=== PATIENT | female | born 1955 | race Caucasian/White ===

== ENCOUNTER 2017-08-21 12:51 | Outpatient (CLI) | payer OTHER ==
--- NOTE | 2017-08-21 17:37 | Mammography Report ---
DIGITAL DIAGNOSTIC BILATERAL MAMMOGRAM: 08/21/2017 CLINICAL INDICATION: Left periareolar pain. COMPARISON: 03/06/2016, 01/22/2014, 11/28/2012, 11/24/2011, 10/27/2010, 10/14/2009. TECHNIQUE: Bilateral CC, laterally exaggerated CC, MLO views, left true lateral and spot compression views. The breasts again demonstrate heterogeneously dense fibroglandular parenchyma bilaterally. Coarse an d punctate, typically benign calcifications are present. No suspicious masses, clustered microcalcif ications, or regions of architectural distortion are identified. Intramammary lymph nodes are stable . Specifically, no left retroareolar lesion is appreciated. IMPRESSION: BENIGN FINDINGS. RECOMMENDATION: ROUTINE ANNUAL SCREENING UNLESS OTHERWISE CLINICALLY INDICATED. BIRADS CATEGORY: 2, BENIGN FINDINGS. STANDARD QUALIFYING STATEMENTS 1. This examination was reviewed with the aid of Computed-Aided Detection (CAD). 2. A negative or benign imaging report should not delay biopsy if clinically suspicious findings are present. Consider surgical consultation if warranted. More than 5% of cancers are not identified b y imaging. 3. Dense breasts may obscure an underlying neoplasm. JOB #: [id number] EXT JOB #:[id number]
== END 2017-08-21 12:52 | disposition home or self-care (01) ==
LOC: DI 12:51
PROVIDERS: ATTEND Family Medicine
DX: N64.4 Mastodynia (principal)
CPT/HCPCS: 77066

== ENCOUNTER 2017-09-17 09:07 | Outpatient (CLI) | payer OTHER ==
[2017-09-17] MEDS ORDERED: BARIUM SULFATE 135 ML BOTTLE PO ONE (10:03)
[2017-09-17] MEDS ORDERED: BARIUM SULFATE 148 GM POWDER PO ONE (10:03)
--- NOTE | 2017-09-19 14:09 | XRAY Report ---
EXAMINATION: ESOPHAGRAM 09/17/2017 CLINICAL INDICATION: Reflux, history of Pascual fundoplication. COMPARISON: 03/21/2012 FINDINGS: Esophagram was performed in the upright and prone positions. The esophagus is normal in caliber. The hypopharynx appears unremarkable. Diffuse tertiary contractions are seen. No gastroesophageal reflux was visualized during the course of the study, but a significant amount of intraesophageal reflux was present, due to the presbyesophagus. The appearance of the Pascual fundoplication is stable, without evidence of slippage or disruption. IMPRESSION: PRESBYESOPHAGUS. NO EVIDENCE OF COMPLICATION OF PREVIOUS PASCUAL FUNDOPLICATION. FLUOROSCOPY TIME: Two minutes, 3 seconds; 24 spot images obtained. TD: 09/17/2017 14:35 MTDGabriel
== END 2017-09-17 09:08 | disposition home or self-care (01) ==
LOC: DI 09:07
PROVIDERS: ATTEND Surgery
DX: K21.9 Gastro-esophageal reflux disease without esophagitis (principal)
CPT/HCPCS: 74220; A9270

== ENCOUNTER 2017-10-04 09:09 | Day surgery (SDC) | payer OTHER ==
[2017-10-04] MEDS ORDERED: LACTATED RINGERS 1,000 ML IV ONE (09:40)
[2017-10-04] MEDS ORDERED: ONDANSETRON 4 MG/2 ML VIAL ONE (10:07)
--- NOTE | 2017-10-04 10:28 | HISTORY & PHYSICAL EXAMINATION ---
HPI - History of Present Illness HPI Comment/Other: Visit Type: Initial Consult Primary Provider: Dr. Maldonado History of Present Illness: Patient is here today for consult, breast and abdominal pain. ...................................................................Axel Sierra RN August 28, 2017 1:05 PM Mary Is here in consultation for persistent severe GERD. despite medications and depsite Lap Luis F performed in 2005. She was also referred for nipple pain, however, states that this has completely resolved and that she had a mammography performed recently which is normal.Current Meds: OMEPRAZOLE 20 MG ORAL CAPSULE DELAYED RELEASE (OMEPRAZOLE) Take one capsule by mouth daily ASPIR-LOW 81 MG ORAL TABLET DELAYED RELEASE (ASPIRIN) Take one tablet by mouth once daily CARAFATE 1 GM ORAL TABLET (SUCRALFATE) Mix one tablet in water to make slurry and then drink before meals and bedtime, four times a day CARDIZEM 60 MG ORAL TABLET (DILTIAZEM HCL) Take two tablets by mouth twice daily (please note that this is NOT the time release formulation) KLONOPIN 1 MG ORAL TABLET (CLONAZEPAM) Take 1/2 - 1 tablet by mouth at bedtime as needed for insomnia REGLAN 10 MG ORAL TABLET (METOCLOPRAMIDE HCL) Take one tab by mouth before meals and at bedtime Allergies: PCN (Critical) * ACIPHEX (Critical) PREMARIN (Critical) * PROMETHAZINE (Critical) * ESTRACE (Critical) Past Medical History: Reviewed history from 12/01/2011 and no changes required: Reacts to PCN, Premarin Irregular Heartbeat HTN Problems with Anesthesia Heartburn Acid Reflux Past Surgical History: Reviewed history from 06/19/2013 and no changes required: Fundoplication 05-28-06, Dr. Givens EGD and colonoscopy prior to surgery - colonoscopy WNL Family History Summary: Reviewed history Last on 08/03/2017 and no changes required:08/28/2017 Father (biol.) - Has a father - Entered On: 04/17/2014 Father (biol.) - Has Family History of Other Medical Problems - Aneurysm - Entered On: 08/28/2017 General Comments - FH: Mother: HTN, alive at 90+ Father: HTN, of of abd aneurysm MGF: Breast cancer PGF: Heart disease Social History: Reviewed history from 08/02/2006 and no changes required: Patient has never smoked. Passive smoke exposure - no Alcohol Use - no Drug Use - no HIV/High Risk - no Regular Exercise - yes Risk Factors: Smoked Tobacco Use: Never smoker Drug use: no Alcohol use: no Exercise: yes Times per week: 4 Type of Exercise: walking Problems were reviewed with the patient during this visit. Medications were reviewed with the patient during this visit. Allergies were reviewed with the patient during this visit. Allergies: PCN (Critical) * ACIPHEX (Critical) PREMARIN (Critical) * PROMETHAZINE (Critical) * ESTRACE (Critical) Physical Exam General: well developed, well nourished, in no acute distress Lungs: clear bilaterally to A & P Heart: regular rate and rhythm, S1, S2 without murmurs, rubs, gallops, or clicks Abdomen: bowel sounds positive; abdomen soft and non-tender without masses, organomegaly, or hernias noted Pulses: pulses normal in all 4 extremities Extremities: no clubbing, cyanosis, edema, or deformity noted with normal full range of motion of all joints Cervical Nodes: no significant adenopathy Psych: alert and cooperative; normal mood and affect; normal attention span and concentration Impression & Recommendations: Problem # 1: chronic GERD Barium swallow demonstrates adequate positioning of wrap with evidence of presbyesophagus. Will proceed with EGD. PMH/PSH - Past Medical History Cardiovascular: positive: Hypertension Respiratory: positive: None Endocrine/Autoimmune: positive: None GI: positive: GERD : positive: Chronic bladder infection HEENT: positive: None, Chronic vision loss Psych: positive: None Musculoskeletal: positive: None Derm: positive: None MRSA Hx?: No - Past Surgical History General: positive: Hiatal hernia repair, Colonoscopy, EGD HEENT: positive: Tonsil/Adenoidectomy Meds/Allgy - Home Medications Home Medications: Ambulatory Orders Medication Instructions Recorded Confirmed Aspirin [Adult Aspirin Regimen] 1 DAILY 10/03/17 Multivitamin [Multiple Vitamins] 1 DAILY 10/03/17 Omeprazole [PriLOSEC] 1 BID 10/03/17 Sucralfate 1 DAILY 10/03/17 clonazePAM [Clonazepam] 1 DAILY PM 10/03/17 diltiaZEM [Cardizem] 1 DAILY 10/03/17 Exam - Vital Signs Vital Signs: Vital Signs x48h Temp Pulse Resp BP Pulse Ox 10/04/17 09:20 36.5 C 91 18 142/73 H 98
[2017-10-04] MEDS ORDERED: MIDAZOLAM 2 MG/2 ML VIAL IVP ONE (10:35)
[2017-10-04] MEDS ORDERED: fentaNYL 100 MCG/2 ML VIAL IVP ONE (10:35)
[2017-10-04] MEDS ORDERED: ONDANSETRON 4 MG/2 ML VIAL IVP ONE (10:35)
[2017-10-04 11:21] VITALS: BP 127/64
== END 2017-10-04 09:10 | disposition home or self-care (01) ==
LOC: SDS 09:09
PROVIDERS: ATTEND Surgery
PROC: 0DB68ZX Excision of Stomach, Via Natural or Artificial Opening Endoscopic, Diagnostic (ICD-10-PCS; principal; 2017-10-04 10:15)
DX: K29.70 Gastritis, unspecified, without bleeding (principal); K31.7 Polyp of stomach and duodenum; I10 Essential (primary) hypertension; Z79.82 Long term (current) use of aspirin
CPT/HCPCS: 43239; J7120

== ENCOUNTER 2019-04-07 08:00 | Outpatient (CLI) | payer MEDICARE, OTHER ==
[2019-04-07 13:51] LABS: BILIRUBIN,URINE NEGATIVE (NEGATIVE); GLUCOSE, URINE (UA) NEGATIVE (NEGATIVE); KETONES,URINE (UA) NEGATIVE (NEGATIVE); LEUKOCYTE ESTERASE, URINE NEGATIVE (NEGATIVE); NITRITE,URINE NEGATIVE (NEGATIVE); OCCULT BLOOD,URINE NEGATIVE (NEGATIVE); PH,URINE 5.5 PH (5.0-7.5); PROTEIN,URINE NEGATIVE (NEGATIVE); UROBILINOGEN,URINE 0.2 (NORMAL) E.U./dL (NORMAL)
[2019-04-07 13:52] LABS: CLARITY,URINE CLEAR (CLEAR)
== END 2019-04-07 23:59 | disposition home or self-care (01) ==
LOC: LAB.R 08:00
PROVIDERS: ATTEND Physician Assistant Medical
DX: R10.32 Left lower quadrant pain (principal)
CPT/HCPCS: 81001; 81003; 87086

== ENCOUNTER 2019-04-07 15:52 | Outpatient (CLI) | payer MEDICARE ==
[2019-04-07 16:09] LABS: BASOPHILS % (AUTO) 0.4 %; EOSINOPHILS # (AUTO) 0.1 10^3/uL (0.0-0.7); EOSINOPHILS % (AUTO) 0.6 %; HGB - HEMOGLOBIN 13.9 g/dL (12.0-16.0); LYMPHOCYTES # (AUTO) 2.5 10^3/uL (1.5-3.5); LYMPHOCYTES % (AUTO) 30.3 %; MEAN CORPUSCULAR HEMOGLOBIN 30.7 pg (27.0-31.0); MEAN CORPUSCULAR HGB CONC 32.3 g/dL (32.0-36.0); MEAN CORPUSCULAR VOLUME 95.1 fL (81.0-99.0); MONOCYTES # (AUTO) 0.8 10^3/uL (0.0-1.0); MONOCYTES % (AUTO) 9.3 %; NEUTROPHILS # (AUTO) 4.9 10^3/uL (1.5-6.6); NEUTROPHILS % (AUTO) 59.2 %; PLT - PLATELET COUNT 304 10^3/uL (130-450); RED BLOOD COUNT 4.53 10^6/uL (4.20-5.40); RED CELL DISTRIBUTION WIDTH 13.7 % (12.0-15.0); WHITE BLOOD COUNT 8.3 x10^3/uL (4.8-10.8)
[2019-04-07] MEDS ORDERED: IOVERSOL 320 100 ML VIAL IVP ONE ×2 (16:15→17:15)
[2019-04-07] MEDS ORDERED: IOVERSOL 320 50 ML VIAL ONE (16:15)
[2019-04-07 16:20] LABS: ALBUMIN 4.4 g/dL (3.2-5.5); ALBUMIN/GLOBULIN RATIO 1.3 (1.0-2.2); BILIRUBIN,TOTAL 0.5 mg/dL (0.2-1.0); CALCIUM 9.2 mg/dL (8.5-10.3); CREATININE 0.8 mg/dL (0.4-1.0); TOTAL PROTEIN 7.8 g/dL (6.7-8.2)
[2019-04-07] MEDS ORDERED: IOVERSOL 320 50 ML VIAL PO ONE (17:15)
--- NOTE | 2019-04-07 18:46 | CT Report ---
Reason: ABDOMINAL PAIN,LLQ Procedure Date: 04/07/2019 Accession Number: [id number] / [id number] Procedure: CT - Abdomen/Pelvis W CPT Code: FULL RESULT: EXAM: CT ABDOMEN AND PELVIS EXAM DATE: 04/07/2019 05:12 PM. CLINICAL HISTORY: ABDOMINAL PAIN,LLQ. COMPARISONS: None. TECHNIQUE: Routine helical CT imaging was performed through the abdomen and pelvis. IV contrast: OPTI 320 100ML. Enteric contrast: No. Reconstructions: Coronal and sagittal. In accordance with CT protocol optimization, one or more of the following dose reduction techniques were utilized for this exam: automated exposure control, adjustment of mA and/or KV based on patient size, or use of iterative reconstructive technique. FINDINGS: Lung Bases: A 4.5 mm nodule in right lower lobe (image 7 series 3). Liver: Multiple hypodense lesions scattered in both lobes of liver with large lesions demonstrating attenuation consistent with simple cysts. No concerning masses. Gallbladder/Bile Ducts: Unremarkable. Spleen: Normal. Pancreas: Normal. Adrenal Glands: Normal. Kidneys: Normal. No masses or hydronephrosis. Peritoneal Cavity/Bowel: Normal. No free fluid, free air or adenopathy. No masses or acute inflammatory process. The appendix is well visualized and normal. There is diffuse colonic diverticulosis were no diverticulitis. Pelvic Organs: Normal. The bladder and visualized pelvic organs are within normal limits. Vasculature: No aneurysms or other significant abnormality. Bones: No significant abnormality. Other: None. IMPRESSION: No acute abdominal pathology. Normal appendix. Diffuse colonic diverticulosis however no diverticulitis. Multiple hypodense lesions scattered in both lobes of liver with attenuation suggestive of simple cysts. A 4.5 mm pulmonary nodule in right lower lobe. No follow-up required per Fleischner 2017 guidelines. [facility] The call report notification system was initiated by Dr. Adriana Slater at 06:41 PM on 04/07/2019. ADDENDUM: 04/07/19 18:51 The above call report findings were discussed with Zohra Yuen by Dr. Adriana Slater at 06:51 PM on 04/07/2019.
== END 2019-04-07 15:53 | disposition home or self-care (01) ==
LOC: LAB 15:52 → DI 15:53
PROVIDERS: ATTEND Physician Assistant Medical
DX: R10.32 Left lower quadrant pain (principal); K57.30 Diverticulosis of large intestine without perforation or abscess without bleeding
CPT/HCPCS: 36415; 74177; 80053; 81003; 83690; 85025; Q9967

== ENCOUNTER 2019-05-15 14:53 | Outpatient (CLI) | payer MEDICARE ==
--- NOTE | 2019-05-16 08:20 | Mammography Report ---
Reason: ENCOUNTER FOR SCREENING MAMMOGRAM FOR MALIGNANT NE Procedure Date: 05/15/2019 Accession Number: [id number] / [id number] Procedure: [facility] - Screening Mammo w/[facility] CPT Code: FULL RESULT: EXAM: Screening Mammo w/[facility] DATE: 05/15/2019 3:48 PM CLINICAL HISTORY: Screening encounter. History of benign left breast biopsy. TECHNIQUE: (B) - Bilateral CC, laterally exaggerated CC, MLO views were obtained. COMPARISON: 08/21/2017 through 11/20/2012. PARENCHYMAL PATTERN: (D) - The breast(s) demonstrate(s) heterogeneously dense fibroglandular parenchyma. FINDINGS: There are coarse typically benign calcifications. There are no suspicious masses, calcifications, or areas of distortion. IMPRESSION: Benign findings. BI-RADS category 2. RECOMMENDATION: (ANNUAL) - Recommend routine annual screening mammography. BI-RADS CATEGORY: (2) - Benign Findings. STANDARD QUALIFYING STATEMENTS: 1. This examination was not reviewed with the aid of Computer-Aided Detection (CAD). 2. A negative or benign imaging report should not preclude biopsy if clinically suspicious findings are present. 3. Dense breasts may obscure an underlying neoplasm. 4. This examination was reviewed with the aid of 3D breast imaging (tomosynthesis).
== END 2019-05-15 14:54 | disposition home or self-care (01) ==
LOC: DI 14:53
PROVIDERS: ATTEND Family Medicine
DX: Z12.31 Encounter for screening mammogram for malignant neoplasm of breast (principal)
CPT/HCPCS: 77063; 77067

== ENCOUNTER 2019-08-19 11:44 | Day surgery (SDC) | payer MEDICARE ==
[2019-08-19] MEDS ORDERED: LACTATED RINGERS 1,000 ML IV ONE (12:29)
[2019-08-19] MEDS ORDERED: fentaNYL 250 MCG/5 ML VIAL IVP ONE (13:41)
[2019-08-19] MEDS ORDERED: MIDAZOLAM 2 MG/2 ML VIAL IVP ONE (13:41)
[2019-08-19 14:39] VITALS: BP 127/65
[2019-08-19] MEDS ORDERED: ONDANSETRON 4 MG/2 ML VIAL ONE (14:41)
== END 2019-08-19 11:45 | disposition home or self-care (01) ==
LOC: SDS 11:44
PROVIDERS: ATTEND Surgery
PROC: 0DBN8ZZ Excision of Sigmoid Colon, Via Natural or Artificial Opening Endoscopic (ICD-10-PCS; principal; 2019-08-19 12:45)
DX: R10.32 Left lower quadrant pain (principal); D12.5 Benign neoplasm of sigmoid colon; K57.30 Diverticulosis of large intestine without perforation or abscess without bleeding; I10 Essential (primary) hypertension; K21.9 Gastro-esophageal reflux disease without esophagitis
CPT/HCPCS: 45380; J7120

== ENCOUNTER 2020-07-01 09:15 | Outpatient (CLI) | payer MEDICARE ==
[2020-07-01 11:58] LABS: BASOPHILS % (AUTO) 0.5 %; EOSINOPHILS % (AUTO) 0.7 %; HGB - HEMOGLOBIN 14.8 g/dL (12.0-16.0); LYMPHOCYTES # (AUTO) 0.8 10^3/uL (1.5-3.5); LYMPHOCYTES % (AUTO) 19.8 %; MEAN CORPUSCULAR HEMOGLOBIN 31.5 pg (27.0-31.0); MEAN CORPUSCULAR HGB CONC 32.7 g/dL (32.0-36.0); MEAN CORPUSCULAR VOLUME 96.4 fL (81.0-99.0); MEAN PLATELET VOLUME 9.5 fL (7.9-10.8); MONOCYTES # (AUTO) 0.4 10^3/uL (0.0-1.0); MONOCYTES % (AUTO) 10.4 %; NEUTROPHILS # (AUTO) 2.9 10^3/uL (1.5-6.6); NEUTROPHILS % (AUTO) 68.4 %; PLT - PLATELET COUNT 276 10^3/uL (130-450); RED CELL DISTRIBUTION WIDTH 13.6 % (12.0-15.0); WHITE BLOOD COUNT 4.2 x10^3/uL (4.8-10.8)
[2020-07-01 12:36] LABS: ALBUMIN 4.2 g/dL (3.2-5.5); ALBUMIN/GLOBULIN RATIO 1.2 (1.0-2.2); ALKALINE PHOSPHATASE 63 IU/L (42-121); ALT ALANINE AMINOTRANSFERASE 31 IU/L (10-60); AST ASPARTATE AMINOTRANSFERASE 19 IU/L (10-42); BILIRUBIN,TOTAL 0.6 mg/dL (0.2-1.0); BUN - BLOOD UREA NITROGEN 17 mg/dL (6-20); CALCIUM 9.2 mg/dL (8.5-10.3); CARBON DIOXIDE - CO2 26 mmol/L (21-32); CHLORIDE 105 mmol/L (101-111); CHOL/HDL RATIO 3.5 (<4.4); CHOLESTEROL 272 mg/dL; CREATININE 0.7 mg/dL (0.4-1.0); GLUCOSE 107 mg/dL (70-100); HDL CHOLESTEROL 78 mg/dL; LDL CHOLESTEROL,CALCULATED 179 mg/dL; LDL/HDL RATIO 2.3 (<4.4); SODIUM 139 mmol/L (135-145); TOTAL PROTEIN 7.8 g/dL (6.7-8.2); VLDL CHOLESTEROL 15 mg/dL
== END 2020-07-01 23:59 | disposition home or self-care (01) ==
LOC: LAB.WCP 09:15
PROVIDERS: ATTEND Family Medicine
DX: R03.0 Elevated blood-pressure reading, without diagnosis of hypertension (principal); E78.5 Hyperlipidemia, unspecified; R00.2 Palpitations
CPT/HCPCS: 36415; 80053; 80061; 83721; 84443; 85025

== ENCOUNTER 2021-01-10 07:00 | Outpatient (CLI) | payer MEDICARE ==
[2021-01-10 12:06] LABS: BASOPHILS % (AUTO) 0.7 %; EOSINOPHILS # (AUTO) 0.1 10^3/uL (0.0-0.7); HCT - HEMATOCRIT 42.6 % (37.0-47.0); LYMPHOCYTES # (AUTO) 1.4 10^3/uL (1.5-3.5); LYMPHOCYTES % (AUTO) 24.7 %; MEAN CORPUSCULAR HEMOGLOBIN 31.4 pg (27.0-31.0); MEAN CORPUSCULAR HGB CONC 32.9 g/dL (32.0-36.0); MEAN CORPUSCULAR VOLUME 95.5 fL (81.0-99.0); MEAN PLATELET VOLUME 9.3 fL (7.9-10.8); MONOCYTES # (AUTO) 0.6 10^3/uL (0.0-1.0); MONOCYTES % (AUTO) 9.8 %; NEUTROPHILS # (AUTO) 3.7 10^3/uL (1.5-6.6); NEUTROPHILS % (AUTO) 63.6 %; PLT - PLATELET COUNT 303 10^3/uL (130-450); RED BLOOD COUNT 4.46 10^6/uL (4.20-5.40); RED CELL DISTRIBUTION WIDTH 13.8 % (12.0-15.0); WHITE BLOOD COUNT 5.8 x10^3/uL (4.8-10.8)
[2021-01-10 12:56] LABS: ALBUMIN 4.1 g/dL (3.2-5.5); ALBUMIN/GLOBULIN RATIO 1.2 (1.0-2.2); ALKALINE PHOSPHATASE 67 IU/L (42-121); ALT ALANINE AMINOTRANSFERASE 31 IU/L (10-60); AST ASPARTATE AMINOTRANSFERASE 22 IU/L (10-42); BILIRUBIN,TOTAL 0.6 mg/dL (0.2-1.0); BUN - BLOOD UREA NITROGEN 14 mg/dL (6-20); CALCIUM 9.9 mg/dL (8.5-10.3); CARBON DIOXIDE - CO2 27 mmol/L (21-32); CHLORIDE 104 mmol/L (101-111); CHOLESTEROL 163 mg/dL; CREATININE 0.8 mg/dL (0.4-1.0); GFR - MDRD 72 (>89); GLUCOSE 110 mg/dL (70-100); HDL CHOLESTEROL 80 mg/dL; LDL CHOLESTEROL,CALCULATED 70 mg/dL; LDL/HDL RATIO 0.9 (<4.4); POTASSIUM 3.6 mmol/L (3.5-5.0); SODIUM 141 mmol/L (135-145); TOTAL PROTEIN 7.5 g/dL (6.7-8.2); TRIGLYCERIDES 64 mg/dL; VLDL CHOLESTEROL 13 mg/dL
[2021-01-10 13:03] LABS: THYROID STIMULATING HORMONE 1.2 uIU/mL (0.34-5.60)
== END 2021-01-10 23:59 | disposition home or self-care (01) ==
LOC: LAB.WCP 07:00
PROVIDERS: ATTEND Family Medicine
DX: F41.9 Anxiety disorder, unspecified (principal); R03.0 Elevated blood-pressure reading, without diagnosis of hypertension; E78.5 Hyperlipidemia, unspecified; I47.1 Supraventricular tachycardia
CPT/HCPCS: 36415; 80053; 80061; 83721; 84443; 85025

== ENCOUNTER 2021-08-05 11:10 | Outpatient (CLI) | payer MEDICARE ==
--- NOTE | 2021-08-08 16:06 | DEXA Report ---
PROCEDURE: Dexa Spine and/or Hip INDICATIONS: POST MENOPAUSAL TECHNIQUE: Dual energy x-ray absorptiometry (DXA) was performed on a Astrid System. Regions measur ed are the AP Spine, femoral neck, and if needed forearm. COMPARISON: None. FINDINGS: Lumbar Spine: Bone Mineral Density 0.977 g/cm/cm,T score -1.7, mild to moderate osteopenia Left Hip: Bone Mineral Density 0.719 g/cm/cm,T score -2.3, severe osteopenia Left Femoral Neck: Bone Mineral Density 0.757 g/cm/cm, T score -2.0, moderate to severe osteopenia (T score greater or equal to -1.0: NORMAL) (T score from -1.1 to -2.4: OSTEOPENIA) (T score less than or equal to -2.5 to: OSTEOPOROSIS) Impression: Prominent osteopenia particularly within the left hip. Patients with diagnosis of osteoporosis or osteopenia should have regular bone mineral density assess ment. For those eligible for Medicare, routine testing is allowed once every 2 years. Testing frequ ency can be increased for patients who have rapidly progressing disease or for those who are receivin g medical therapy to restore bone mass. Reviewed by: Kayy Barraza MD on 08/08/2021 4:05 PM PST Approved by: Kayy Barraza MD on 08/08/2021 4:05 PM PST Station ID: [id number]
== END 2021-08-05 11:11 | disposition home or self-care (01) ==
LOC: DI 11:10
PROVIDERS: ATTEND Internal Medicine
DX: Z78.0 Asymptomatic menopausal state (principal); M85.89 Other specified disorders of bone density and structure, multiple sites

== ENCOUNTER 2021-08-29 11:22 | Outpatient (CLI) | payer MEDICARE ==
--- NOTE | 2021-08-30 08:19 | Mammography Report ---
BILATERAL DIGITAL SCREENING MAMMOGRAM 3D/2D: 08/29/2021 CLINICAL: Routine screening. Comparison is made to exams dated: 05/15/2019 mammogram, 08/21/2017 mammogram, 03/06/2016 mammogram, mammogram, 11/28/2012 mammogram, and 11/24/2011 mammogram - [facility]. The tissue of both breasts is heterogeneously dense. This may lower the sensitivity of mammography. There are benign calcifications in the right breast. No significant masses, calcifications, or other findings are seen in either breast. There has been no significant interval change. IMPRESSION: BENIGN There is no mammographic evidence of malignancy. A 1 year screening mammogram is recommended. This exam was interpreted at Station ID: [id number]. NOTE: For mammograms, a report in lay terms will be sent to the patient. Approximately 15% of breast malignancies will not be visualized mammographically. In the management of a palpable breast mass, a negative mammogram must not discourage biopsy of a clinically suspicious lesion. Electronically Signed By: Darryl Castañeda M.D. ddheraclio/treasure:08/29/2021 12:31:06 ACR BI-RADS Category 2: Benign Finding(s) 3342F PARENCHYMAL PATTERN: (D) - The breast(s) demonstrate(s) heterogeneously dense fibroglandular janet olivas. BI-RADS CATEGORY: (2) - 2 RECOMMENDATION: (ANNUAL) - Recommend routine annual screening mammography. [id number] 1 year screening LATERALITY: (B)
== END 2021-08-29 11:23 | disposition home or self-care (01) ==
LOC: DI 11:22
PROVIDERS: ATTEND Internal Medicine
DX: Z12.31 Encounter for screening mammogram for malignant neoplasm of breast (principal)

== ENCOUNTER 2021-09-20 15:18 | Outpatient (CLI) | payer MEDICARE | END 2021-09-20 23:59 | disposition home or self-care (01) | LOC: COV 15:18 | PROVIDERS: ATTEND Family Medicine | DX: R05.9 Cough, unspecified (principal); R07.0 Pain in throat; Z20.822 Contact with and (suspected) exposure to COVID-19 ==

== ENCOUNTER 2022-09-09 09:34 | Outpatient (CLI) | payer MEDICARE ==
[2022-09-09 18:38] LABS: BASOPHILS % (AUTO) 0.4 %; EOSINOPHILS % (AUTO) 0.6 %; HCT - HEMATOCRIT 38.4 % (37.0-47.0); HGB - HEMOGLOBIN 11.2 g/dL (12.0-16.0); LYMPHOCYTES # (AUTO) 1.2 10^3/uL (1.5-3.5); LYMPHOCYTES % (AUTO) 21.9 %; MEAN CORPUSCULAR HEMOGLOBIN 24.9 pg (27.0-31.0); MEAN CORPUSCULAR HGB CONC 29.2 g/dL (32.0-36.0); MEAN CORPUSCULAR VOLUME 85.3 fL (81.0-99.0); MEAN PLATELET VOLUME 10.3 fL (7.9-10.8); MONOCYTES # (AUTO) 0.4 10^3/uL (0.0-1.0); MONOCYTES % (AUTO) 7.8 %; NEUTROPHILS # (AUTO) 3.6 10^3/uL (1.5-6.6); NEUTROPHILS % (AUTO) 69.1 %; PLT - PLATELET COUNT 305 10^3/uL (130-450); RED CELL DISTRIBUTION WIDTH 15.5 % (12.0-15.0); WHITE BLOOD COUNT 5.3 x10^3/uL (4.8-10.8)
[2022-09-09 18:55] LABS: ALBUMIN/GLOBULIN RATIO 1.2 (1.0-2.2); ALKALINE PHOSPHATASE 67 IU/L (42-121); ALT ALANINE AMINOTRANSFERASE 22 IU/L (10-60); AST ASPARTATE AMINOTRANSFERASE 20 IU/L (10-42); BILIRUBIN,TOTAL 0.5 mg/dL (0.2-1.0); BUN - BLOOD UREA NITROGEN 16 mg/dL (6-20); CALCIUM 9.2 mg/dL (8.5-10.3); CARBON DIOXIDE - CO2 26 mmol/L (21-32); CHLORIDE 107 mmol/L (101-111); CHOL/HDL RATIO 1.8 (<4.4); CHOLESTEROL 161 mg/dL; CREATININE 0.6 mg/dL (0.4-1.0); GFR - MDRD 99 (>89); GLUCOSE 103 mg/dL (70-100); HDL CHOLESTEROL 88 mg/dL; LDL CHOLESTEROL,CALCULATED 60 mg/dL; LDL/HDL RATIO 0.7 (<4.4); POTASSIUM 3.6 mmol/L (3.5-5.0); SODIUM 140 mmol/L (135-145); TOTAL PROTEIN 7.4 g/dL (6.7-8.2); TRIGLYCERIDES 63 mg/dL; VLDL CHOLESTEROL 13 mg/dL
[2022-09-09 19:05] LABS: THYROID STIMULATING HORMONE 1.04 uIU/mL (0.34-5.60)
[2022-09-10 10:57] LABS: ESTIMATED AVERAGE GLUCOSE 126 mg/dL (70-100)
== END 2022-09-09 09:35 | disposition home or self-care (01) ==
LOC: LAB.N 09:34
PROVIDERS: ATTEND Internal Medicine
DX: I10 Essential (primary) hypertension (principal); R73.01 Impaired fasting glucose; I47.1 Supraventricular tachycardia
CPT/HCPCS: 36415; 80053; 80061; 83036; 83721; 84443; 85025

== ENCOUNTER 2022-11-02 11:16 | Outpatient (CLI) | payer MEDICARE ==
--- NOTE | 2022-11-02 15:23 | CT Report ---
PROCEDURE: CT CHEST WO INDICATIONS: PULMONARY NODULES. Nonsmoker, prior history of fungus exposure. TECHNIQUE: Noncontrast 1mm axial images were acquired from the pulmonary apices to the posterior costophrenic an gles. Axial 5 mm soft tissue kernel reconstructions were performed as well as 8 mm axial MIP and cor onal and sagittal 5 mm reformations. For radiation dose reduction, the following was used: automate d exposure control, adjustment of mA and/or kV according to patient size. COMPARISON: CT chest 04/21/2019 FINDINGS: Images are denoted as (series #/image #). Visualized thyroid: 1.5 cm nodule posterior right lobe of the thyroid gland (3/9). The thyroid gland is not well evaluated by CT but this does not appear obviously changed since the prior CT. Lymph nodes: No evidence of thoracic lymphadenopathy however evaluation for mediastinal and hilar prabhakar nopathy is limited in the absence of intravenous contrast. Vasculature: Aorta and main pulmonary artery diameters are within normal range. Heart: No pericardial effusion. Coronary artery calcifications are present. Lung parenchyma and pleura: Mild biapical pleural/parenchymal scarring. Nodules include: -Right lower lobe: 6 mm (4/212), unchanged. -Left lower lobe: 3 mm subpleural nodule (4/245), unchanged. -Right middle lobe: 4 mm (4/228) no significant change. -Left lower lobe: 5 mm (4/185), unchanged. No pleural effusion. Chest wall/musculoskeletal: Multilevel degenerative change of the visualized spine. Visualized upper abdomen: Multiple liver cysts present as before. Additional subcentimeter hepatic hy podensities present, too small to characterize. Renal sinus cysts are likely also present, partially imaged. Postsurgical changes near the GE junction, possible prior fundoplication. IMPRESSION: 1. Previously demonstrated small pulmonary nodules are not significantly changed. 2. An approximately 1.5 cm nodule is present at the right lobe of the thyroid gland. The thyroid is n ot well evaluated by CT. Per ACR incidental findings guidelines, further evaluation with thyroid ultr asound is recommended. Reviewed by: Nico Trevino MD on 11/02/2022 3:22 PM PST Approved by: Nico Trevino MD on 11/02/2022 3:22 PM PST Station ID: [id number]
== END 2022-11-02 11:17 | disposition home or self-care (01) ==
LOC: DI 11:16
PROVIDERS: ATTEND Internal Medicine
DX: R91.8 Other nonspecific abnormal finding of lung field (principal); E04.1 Nontoxic single thyroid nodule

== ENCOUNTER 2022-11-02 11:17 | Outpatient (CLI) | payer MEDICARE ==
--- NOTE | 2022-11-03 12:23 | Mammography Report ---
BILATERAL DIGITAL SCREENING MAMMOGRAM 3D/2D: 11/02/2022 CLINICAL: Routine screening. Comparison is made to exams dated: 08/29/2021 mammogram, 05/15/2019 mammogram, 08/21/2017 mammogram, 03/06/2016 mammogram, and 01/22/2014 mammogram - [facility]. Both breasts are heterogeneously dense, which may obscure small masses (category c / 51-75% glandular tissue). There are benign calcifications in the right breast. No significant masses, calcifications, or other findings are seen in either breast. There has been no significant interval change. IMPRESSION: BENIGN There is no mammographic evidence of malignancy. A 1 year screening mammogram is recommended. Based on the Tyrer Cuzick model (a risk assessment model) the patients lifetime risk is 12.0% and he r 10 year risk is 6.8%. According to the ACR, ACS, and NCCN guidelines, an annual breast MRI exam david ng with mammogram is recommended if the patients lifetime risk is 20% or greater. This exam was interpreted at Station ID: [id number]. NOTE: For mammograms, a report in lay terms will be sent to the patient. Approximately 15% of breast malignancies will not be visualized mammographically. In the management of a palpable breast mass, a negative mammogram must not discourage biopsy of a clinically suspicious lesion. Electronically Signed By: Guido De La Cruz M.D., jr/treasure:11/02/2022 14:20:53 ACR BI-RADS Category 2: Benign Finding(s) 3342F PARENCHYMAL PATTERN: (D) - The breast(s) demonstrate(s) heterogeneously dense fibroglandular parerlinday ma. BI-RADS CATEGORY: (2) - 2 RECOMMENDATION: (ANNUAL) - Recommend routine annual screening mammography. [id number] 1 year screening LATERALITY: (B)
== END 2022-11-02 11:18 | disposition home or self-care (01) ==
LOC: DI 11:17
PROVIDERS: ATTEND Internal Medicine
DX: Z12.31 Encounter for screening mammogram for malignant neoplasm of breast (principal)

== ENCOUNTER 2022-11-10 12:23 | Outpatient (CLI) | payer MEDICARE ==
--- NOTE | 2022-11-10 16:46 | Ultrasound Report ---
PROCEDURE: Head or Neck Soft Tissue INDICATIONS: THYROID NODULE TECHNIQUE: Real-time scanning was performed of the thyroid gland, with image documentation. COMPARISON: CT 11-02-22 FINDINGS: Right: Thyroid lobe measures 5.4 x 1.6 x 2.0 cm, and is homogeneous in echotexture. Left: Thyroid lobe measures 4.8 x 1.4 x 1.8 cm, and is homogenous in echotexture. Isthmus: 2 mm thick. Nodule number: One Location: Right inferior, corresponding to CT abnormality Size: 2.0 x 1.3 x 1.5 cm. Composition: Solid Echogenicity: Hypoechoic Shape: wider than tall. Margins: Smooth Echogenic foci: None Total points: 4 ACR TI-RADS category: 4 Nodule number: Two Location: Right inferior Size: 0.6 x 0.3 x 0.5 cm. Composition: Solid Echogenicity: Hypoechoic Shape: wider than tall. Margins: Smooth Echogenic foci: None Total points: 4 ACR TI-RADS category: 4 Nodule number: Three Location: Left superior mid posterior Size: 0.6 x 0.4 x 0.5 cm. Composition: Solid Echogenicity: Hypoechoic Shape: wider than tall. Margins: Smooth Echogenic foci: None Total points: 4 ACR TI-RADS category: 4 Nodule number: Four Location: Left superior mid anterior Size: 0.6 x 0.3 x 0.5 cm. Composition: Solid Echogenicity: Hypoechoic Shape: wider than tall. Margins: Smooth Echogenic foci: None Total points: 4 ACR TI-RADS category: 4 IMPRESSION: Lesion 1 is considered category 4. Secondary to size, FNA is recommended. Lesions 2 through 4 are considered category 4. Secondary to size, no additional follow-up is recommen ded. ACR TI-RADS definitions and recommendations: TI-RADS 1 (benign): 0 points. FNA not needed. TI-RADS 2 (not suspicious): 2 points. FNA not needed. TI-RADS 3 (mildly suspicious): 3 points. "FNA if 2.5 cm or larger, follow up if 1.5 cm or larger (at 1, 3, and 5 years). TI-RADS 4 (moderately suspicious): 4-6 points. "FNA if 1.5 cm or larger, follow up if 1 cm or larger (at 1, 2, 3, and 5 years). TI-RADS 5 (highly suspicious): 7 points or more. "FNA if 1 cm or larger, follow up if 0.5 cm or larger (every year for 5 years). Reviewed by: Kayy Barraza MD on 11/10/2022 4:44 PM PST Approved by: Kayy Barraza MD on 11/10/2022 4:44 PM PST Station ID: [id number]
== END 2022-11-10 12:24 | disposition home or self-care (01) ==
LOC: DI 12:23
PROVIDERS: ATTEND Internal Medicine
DX: E04.2 Nontoxic multinodular goiter (principal)

== ENCOUNTER 2022-12-12 09:47 | Outpatient (CLI) | payer MEDICARE ==
--- NOTE | 2022-12-13 19:03 | Ultrasound Report ---
PROCEDURE: Head or Neck Soft Tissue INDICATIONS: RIGHT THYROID NODULE TECHNIQUE: Real time scanning was performed of the neck region of interest, with image documentation . COMPARISON: Thyroid ultrasound 11/10/2022. FINDINGS: Right inferior thyroid nodule is unchanged compared to prior exam. IMPRESSION: Unchanged thyroid nodule as above. Patient was evaluated for fine-needle aspiration. Secondary to pos terior and inferior location of the nodule limited by patient's tremor, safe access could not be perf ormed for aspiration. Recommend interval ultrasound follow-up. Reviewed by: Kayy Barraza MD on 12/13/2022 7:02 PM PDT Approved by: Kayy Barraza MD on 12/13/2022 7:02 PM PDT Station ID: [id number]
== END 2022-12-12 09:48 | disposition home or self-care (01) ==
LOC: DI 09:47
PROVIDERS: ATTEND Internal Medicine
DX: R04.1 Hemorrhage from throat (principal)

== ENCOUNTER 2023-10-09 08:52 | Outpatient (CLI) | payer MEDICARE ==
[2023-10-09 12:09] LABS: BASOPHILS % (AUTO) 0.6 %; EOSINOPHILS # (AUTO) 0.1 10^3/uL (0.0-0.7); EOSINOPHILS % (AUTO) 1.9 %; HGB - HEMOGLOBIN 15.1 g/dL (12.0-16.0); LYMPHOCYTES # (AUTO) 1.4 10^3/uL (1.5-3.5); LYMPHOCYTES % (AUTO) 26.7 %; MEAN CORPUSCULAR HEMOGLOBIN 31.4 pg (27.0-31.0); MEAN CORPUSCULAR HGB CONC 32.1 g/dL (32.0-36.0); MEAN CORPUSCULAR VOLUME 97.7 fL (81.0-99.0); MEAN PLATELET VOLUME 9.9 fL (7.9-10.8); MONOCYTES # (AUTO) 0.5 10^3/uL (0.0-1.0); MONOCYTES % (AUTO) 8.9 %; NEUTROPHILS # (AUTO) 3.2 10^3/uL (1.5-6.6); NEUTROPHILS % (AUTO) 61.7 %; PLT - PLATELET COUNT 252 10^3/uL (130-450); RED BLOOD COUNT 4.81 10^6/uL (4.20-5.40); RED CELL DISTRIBUTION WIDTH 13.5 % (12.0-15.0); WHITE BLOOD COUNT 5.1 x10^3/uL (4.8-10.8)
[2023-10-09 12:34] LABS: ESTIMATED AVERAGE GLUCOSE 114 mg/dL (70-100); HEMOGLOBIN A1c% 5.6 % (4.27-6.07)
[2023-10-09 12:41] LABS: ALBUMIN 4.4 g/dL (3.2-5.5); ALBUMIN/GLOBULIN RATIO 1.4 (1.0-2.2); ALKALINE PHOSPHATASE 81 IU/L (42-121); ALT ALANINE AMINOTRANSFERASE 20 IU/L (10-60); AST ASPARTATE AMINOTRANSFERASE 16 IU/L (10-42); BILIRUBIN,TOTAL 0.4 mg/dL (0.2-1.0); BUN - BLOOD UREA NITROGEN 23 mg/dL (6-20); CALCIUM 9.7 mg/dL (8.5-10.3); CARBON DIOXIDE - CO2 27 mmol/L (21-32); CHLORIDE 105 mmol/L (101-111); CHOL/HDL RATIO 2.2 (<4.4); CHOLESTEROL 164 mg/dL; CREATININE 0.7 mg/dL (0.6-1.3); GFR - MDRD 83 (>89); GLUCOSE 101 mg/dL (74-104); HDL CHOLESTEROL 76 mg/dL; LDL CHOLESTEROL,CALCULATED 71 mg/dL; LDL/HDL RATIO 0.9 (<4.4); POTASSIUM 3.9 mmol/L (3.5-4.5); SODIUM 139 mmol/L (135-145); TOTAL PROTEIN 7.6 g/dL (6.4-8.9); TRIGLYCERIDES 87 mg/dL (48-352); VLDL CHOLESTEROL 17 mg/dL
[2023-10-09 12:45] LABS: THYROID STIMULATING HORMONE 1.06 uIU/mL (0.34-5.60)
== END 2023-10-09 08:53 | disposition home or self-care (01) ==
LOC: LAB.N 08:52
PROVIDERS: ATTEND Internal Medicine
DX: I10 Essential (primary) hypertension (principal); E78.5 Hyperlipidemia, unspecified; R73.01 Impaired fasting glucose; E04.1 Nontoxic single thyroid nodule
CPT/HCPCS: 36415; 80053; 80061; 83036; 83721; 84443; 85025

== ENCOUNTER 2023-11-23 14:00 | Outpatient (CLI) | payer MEDICARE ==
--- NOTE | 2023-11-26 08:35 | Mammography Report ---
BILATERAL DIGITAL SCREENING MAMMOGRAM 3D/2D: 11/23/2023 Comparison is made to exams dated: 11/02/2022 mammogram, 08/29/2021 mammogram, 05/15/2019 mammogram, an d 08/21/2017 mammogram - [facility]. Both breasts are heterogeneously dense, which may obscure small masses (category c / 51-75% glandular tissue). There are benign calcifications in the right breast. No significant masses, calcifications, or other findings are seen in either breast. There has been no significant interval change. IMPRESSION: BENIGN There is no mammographic evidence of malignancy. A 1 year screening mammogram is recommended. Based on the Tyrer Cuzick model (a risk assessment model) the patient's lifetime risk is 11.4% and he r 10 year risk is 6.8%. According to the ACR, ACS, and NCCN guidelines, an annual breast MRI exam david ng with mammogram is recommended if the patient's lifetime risk is 20% or greater. This exam was interpreted at Station ID: [id number]. NOTE: For mammograms, a report in lay terms will be sent to the patient. Approximately 15% of breast malignancies will not be visualized mammographically. In the management of a palpable breast mass, a negative mammogram must not discourage biopsy of a clinically suspicious lesion. Electronically Signed By: Paul jay/treasure:11/23/2023 21:03:07 letter sent: No_Letter ACR BI-RADS Category 2: Benign Finding(s) 3342F PARENCHYMAL PATTERN: (D) - The breast(s) demonstrate(s) heterogeneously dense fibroglandular janet olivas. BI-RADS CATEGORY: (2) - 2 Mammogram [id number] 1 year screening LATERALITY: (B)
== END 2023-11-23 14:01 | disposition home or self-care (01) ==
LOC: DI 14:00
PROVIDERS: ATTEND Internal Medicine
DX: Z12.31 Encounter for screening mammogram for malignant neoplasm of breast (principal); R92.333 Mammographic heterogeneous density, bilateral breasts; R92.1 Mammographic calcification found on diagnostic imaging of breast